=== PATIENT | male | born 1975 | race Caucasian/White ===

== ENCOUNTER 2020-01-15 13:02 | Emergency (ER) | payer OTHER, SELFPAY ==
[2020-01-15 13:08] VITALS: BP 148/78; PULSE 66; RESP 14; TEMP 36.8; O2SAT 98
--- NOTE | 2020-01-15 13:23 | ED_ITS ---
HPI - Extremity Problem <LEO Gipson - Last Filed: 01/15/20 14:03> General Chief complaint: Extremity Problem,Nontraumatic Stated complaint: possible dvt Time Seen by Provider: 01/15/20 13:17 Source: patient Mode of arrival: Ambulatory Limitations: no limitations History of Present Illness HPI Narrative: This is a 44-year-old male, nonsmoker, who presents to ED with right posterior all calf and knee pain and swelling. Patient had knee ACL repair and meniscus surgery on 01/03/[address] Rich and he had a follow-up appointment with him and was referred to ED for DVT test. Patient reports pain is ranging from 3-7 out of 10 and Pain increases with activities and movements. Patient reports swelling and discomfort is improving since the surgery. Patient reports intact sensation and movement to his toes. Patient reports some tingling/numbness localized to inferior right knee and limited to small area. Patient denies chest pain, short of breath, fever, dizziness. Patient started physical therapy last week and had increases activity level. Patient has been taking Percocet 1 tab up to 3 times a day for pain management along the gabapentin. Patient denies previous blood clots or DVT. Review of Systems <LEO Gipson - Last Filed: 01/15/20 14:03> Review of Systems Narrative: General: Denies fever, chills, fatigue, malaise, sweats. HEENT: Denies sinus pain, ear pain, sore throat, difficulty swallowing, dizziness. Respiratory: Denies dyspnea, cough, wheezing, hemoptysis, sputum. Cardiovascular: Denies chest pain, palpitations, orthopnea, edema. Gastrointestinal: Denies nausea, vomiting, abdominal pain, diarrhea, constipat ion, melena. : Denies dysuria, frequency, incontinence, hematuria, urinary retention. Musculoskeletal: See HPI Skin: Denies rash, skin lesions, or other. Neurologic: Denies weakness, headache, numbness, change in speech, confusion, seizures, incoordination. Psychiatric: No concerning psychosocial issues. 12-point review of systems is negative except for those stated above. Patient History <LEO Gipson - Last Filed: 01/15/20 14:03> Surgical History H/O knee surgery (Acute) Social History Smoking Status: Never smoker Smoking Status: Never smoker Exam <LEO Gipson - Last Filed: 01/15/20 14:03> Narrative Exam Narrative: General appearance: well developed, well nourished, in no acute distress. Head: normocephalic, atraumatic, no scalp lesions, non-tender. ENT: Hearing grossly intact. Nose without bleeding, purulent discharge. Neck/Thyroid: neck supple, full range of motion, no visible masses or meningeal signs. No JVD, non-tender without lymphadenopathy. Skin: no suspicious rashes, lesions over visible areas. Warm and dry and appropriate color for ethnicity. Heart: no clubbing, no cyanosis, no edema. S1 and S2 normal. RRR w/o murmurs, clicks, or bruits. Lungs: Breathing even and unlabored. No stridor. No accessory muscles used. Able to speak in full sentences. Chest: normal shape and expansion. Abdomen: non-obese, non-distended. Neurologic: alert and oriented. Cognitive exam, [employer] and PNS grossly intact on informal exam. Psych: good eye contact, normal affect. Initial Vital Signs Initial Vital Signs: Vital Signs Temperature 98.3 F 01/15/20 13:08 Pulse Rate 66 01/15/20 13:08 Respiratory Rate 14 01/15/20 13:08 Blood Pressure 148/78 H 01/15/20 13:08 Pulse Oximetry 98 01/15/20 13:08 Extrem Right lower extremity: normal capillary refill, edema Details: non-pitting, no joint enlargement, knee Details: abnormal to inspection, tenderness (posterior knee and calf), swelling (lower leg w/o erythema, warmth, purulent discharge from surgical incisions), normal ROM and knee ligament exam normal; no ecchymosis, no deformity and no unusual warmth and foot Details: normal capillary refill, normal to inspection, toes with normal ROM, vascular exam Details: dorsalis pedis pulse present, tendon exam Details: active flexion normal and active extension normal and motor-sensory exam Details: light-touch normal; no tenderness; no cyanosis <Olivia Escobar MD - Last Filed: 01/16/20 07:22> Initial Vital Signs Initial Vital Signs: Vital Signs Temperature 98.3 F 01/15/20 13:08 Pulse Rate 66 01/15/20 13:08 Respiratory Rate 14 01/15/20 13:08 Blood Pressure 148/78 H 01/15/20 13:08 Pulse Oximetry 98 01/15/20 13:08 Scores <TIGRE GipsonP - Last Filed: 01/15/20 14:03> GCS Sissy coma scale eye opening: Spontaneous Deering coma scale verbal response: Orientated [place] coma scale motor response: Obey commands Sissy coma scale total score: 15 Wells' Criteria for DVT Active Cancer (Treatment within 6 months): No Bedridden recently >3 days or major surgery within 4 weeks: Yes Calf Swelling >3cm compared to other leg: Yes Collateral (nonvericose) superficial veins present: No Entire leg swollen: Yes Localized tenderness along the deep vein system: Yes Pitting edema, confined to symtomatic leg: No Paralysis, paresis, or recent plaster immobilization of ext: Yes Previously documented DVT: No Alternative dx to DVT as likely or more likely: No Wells' criteria for DVT: 5 Course <LEO Gipson - Last Filed: 01/15/20 14:03> Orders Ordered: ED Orders 01/15/20 13:27 US periph venous low extrem rt Stat Vital Signs Vital signs: Vital Signs - 8 hr 01/15/20 13:08 Temperature 98.3 F Pulse Rate 66 Respiratory Rate 14 Blood Pressure 148/78 H Pulse Oximetry 98 <Olivia Escobar MD - Last Filed: 01/16/20 07:22> Orders Ordered: ED Orders 01/15/20 13:27 US periph venous low extrem rt Stat Vital Signs Vital signs: Vital Signs - 8 hr 01/15/20 13:08 Temperature 98.3 F Pulse Rate 66 Respiratory Rate 14 Blood Pressure 148/78 H Pulse Oximetry 98 MDM - Extremity (Nontraumatic) <TIGRE GipsonP - Last Filed: 01/15/20 14:03> Differential Diagnosis Differential diagnosis: Likely lower extremity edema, deep vein thrombosis of lower extremity and other (post surgical pain and swelling) Medical Records Attestation: I reviewed the patient's medical records. Imaging Data US - DVT: Radiologist's Impression: [address] [address] Ultrasound Report Signed Patient: Renzo Diamond [facility]#: [id number] : 1975Acct:[id number] Age/Sex: 44 / MDate of Service: 01/15/20 Loc: ED Accession Number: [id number] Procedure: US periph venous low extrem rt Ordering Provider: Olivia Escobar MD PROCEDURE: US PERIPH VENOUS LOW EXTREM RT INDICATIONS: PAIN, SWELLING 10 DAYS POST RIGHT KNEE SURGERY TECHNIQUE: Real-time imaging, as well as color and pulse Doppler interrogation, were performed of the lower extremity deep veins from the inguinal ligament to the popliteal fossa. COMPARISON: None. FINDINGS: The common femoral, femoral and popliteal veins are normally compressible, and free of intraluminal thrombus. Color and pulse Doppler demonstrate normal phasic intraluminal flow. There is normal augmentation response to distal compression maneuver. IMPRESSION: Negative for deep venous thrombosis. Dictated by: Arsenio Dorman M.D. on 01/15/2020 at 12:32 Approved by: Arsenio Dorman M.D. on 01/15/2020 at 12:32 [facility] Narrative Medical decision making narrative: This is a 44 year male who presents to ED with right leg posterior knee and calf pain with swelling. Patient had right knee ACL repair with meniscus surgery on 01/03/2020. He had noticed slight redness to lateral right leg as well. Physical exam is benign and is not consistent for cellulitis. CMS is intact on right lower leg. Patient had follow-up appointment with Dr. Rich today after the surgery and was referred to emergency room for DVT test. Ultrasound test for DVT on right leg was negative. Patient's pain is likely from post op and with increased activity and mobility since starting physical therapy last week. Findings were discussed with the patient and patient advised to use RICE therapy and take as needed NSAIDS with the current pain medication regimen. Patient declined Nguyễn wrap since he has this at home and advised to use it during exercised and mobility. Return precautions were discussed with patient and patient verbalized understanding and in agreement with the treatment plan. Discharge Plan Departure Patient Disposition: Home Clinical Impression: Localized swelling of right lower leg, Post-op pain Discharge Date/Time: 01/15/20 14:09 Instructions: DI for Leg Pain Activity Restrictions/Additional Instructions: You have been diagnosed with [right leg swelling and pain after knee surgery. DVT test was negative per ultrasound test. Physical exam is unremarkable for infection. It is likely the pain is related to postoperative pain and swelling since you have increased activity.]. What to do: *Take your medications as directed. You could add ibuprofen/Motrin 400 mg to 600 mg up to 3 times a day as needed for discomfort with food. You can elevate affected leg during rest and use Nguyễn wrap and ice pack as we discussed as needed. *Follow up with your primary care provider in 2-3 days, call for an appointment. Let them know you were seen in the ED and that we asked you to be seen in follow up. *Return to ED if you have any new, worsening, or concerning symptoms, such as [chest pain, breathing difficulty, increasing numbness/redness/warmth/swelling, ,fever, purulent discharge or any acute concerns. Referrals: Joe Persaud MD [Primary Care Provider] -
--- NOTE | 2020-01-15 13:27 | DI.US.S_ITS ---
PROCEDURE: US PERIPH VENOUS LOW EXTREM RT INDICATIONS: PAIN, SWELLING 10 DAYS POST RIGHT KNEE SURGERY TECHNIQUE: Real-time imaging, as well as color and pulse Doppler interrogation, were performed of the lower extremity deep veins from the inguinal ligament to the popliteal fossa. COMPARISON: None. FINDINGS: The common femoral, femoral and popliteal veins are normally compressible, and free of intraluminal thrombus. Color and pulse Doppler demonstrate normal phasic intraluminal flow. There is normal augmentation response to distal compression maneuver. IMPRESSION: Negative for deep venous thrombosis. Dictated by: Arsenio Dorman M.D. on 01/15/2020 at 12:32 Approved by: Arsenio Dorman M.D. on 01/15/2020 at 12:32
[2020-01-15 13:56] VITALS: PULSE 70
== END 2020-01-15 14:09 | disposition home or self-care (01) ==
PROVIDERS: Emergency Provider Nurse Practitioner Family; PCP Internal Medicine
DX: G89.18 Other acute postprocedural pain (principal); M79.89 Other specified soft tissue disorders
CPT/HCPCS: 93971; 99283